=== PATIENT | male | born 1990 | race Caucasian/White ===

== ENCOUNTER 2018-03-22 14:30 | Emergency (ER) | payer MEDICAID ==
[2018-03-22] MEDS: LORAZEPAM 0.5 MG TAB PO (16:54)
[2018-03-22] MEDS: IBUPROFEN 600 MG TAB PO (16:55)
== END 2018-03-22 17:46 | disposition home or self-care (01) ==
LOC: FTE 14:30
DX: M62.838 Other muscle spasm (principal)
CPT/HCPCS: 72040; 99283-25